=== PATIENT | female | born 1950 | race African-American/Black ===

== ENCOUNTER 2022-01-15 14:35 | Inpatient (IN) | payer MEDICARE, OTHER ==
[~2022-01-15] VITALS: Ht 160 cm; Wt 51.0 kg
[~2022-01-15 14:35] MED LIST: CEFAZOLIN 1 G VIAL ONE; DEXAMETHASONE SOD PHOSPHATE 4 MG INJ ONE; LIDOCAINE-MPF 2% 5 ML VIAL ONE; PROPOFOL 200 MG/20 ML BOTTLE ONE; SUCCINYLCHOLINE CHLORIDE 200 MG/10 ML VIAL ONE
[2022-01-15] MEDS ORDERED: VANCOMYCIN IV 1,000 MG in IV DEXTROSE 5% 250 ML IV ONE (15:00)
[2022-01-15] MEDS ORDERED: IV NORMAL SALINE 1000 ML BAG IV ONE (15:00)
[2022-01-15] MEDS ORDERED: MEROPENEM 1 G in IV NORMAL SALINE 100 ML IV ONE (15:00)
--- NOTE | 2022-01-15 15:00 | NUR ---
Dr Levine at bedside for MSE.
[2022-01-15] MEDS ORDERED: VANCOMYCIN IV 200 ML ONE (15:03)
--- NOTE | 2022-01-15 15:20 | NUR ---
Lab and another RN notified that patient is hardstick. This RN attempted IV x 2, unable to. Another RN is trying at this time and lab will draw blood, made aware.
[2022-01-15] MEDS ORDERED: MEROPENEM 1GM/NS 100ML IVPB **ER PYXIS ONLY IV ONE (15:44)
[2022-01-15 15:53] LABS: HEMATOCRIT 31.9 % (31.2-41.9); MEAN CORPUSCULAR HEMOGLOBIN 31.1 uug (24.7-32.8); MEAN CORPUSCULAR VOLUME 99.9 fL (75.5-95.3); PLATELET COUNT (AUTO) 531 K/uL (179-408)
[2022-01-15] MEDS ORDERED: HEPA500034 SQ (15:53)
[2022-01-15] MEDS ORDERED: OLAN7.5T3 GT (15:53)
[2022-01-15] MEDS ORDERED: ASPI81TA31 GT (15:53)
[2022-01-15] MEDS ORDERED: HYDR453.3 TP (15:53)
[2022-01-15] MEDS ORDERED: FOLI0.8T2 GT (15:53)
[2022-01-15] MEDS ORDERED: INSU3INS6 SQ (15:53)
[2022-01-15] MEDS ORDERED: INSU100V39 SQ (15:53)
[2022-01-15] MEDS ORDERED: LATA2.5D15 EACHEYE (15:53)
[2022-01-15] MEDS ORDERED: METO-295 GT (15:53)
[2022-01-15] MEDS ORDERED: DOCU100C36 GT (15:53)
[2022-01-15] MEDS ORDERED: EPOE4000 SQ (15:53)
[2022-01-15] MEDS ORDERED: OMEP40CA21 GT (15:53)
[2022-01-15] MEDS ORDERED: FENO48TA6 GT (15:53)
[2022-01-15] MEDS ORDERED: ACET-2154 GT ×2 (15:53→16:11)
[2022-01-15 16:09] LABS: CARBON DIOXIDE 32 mmol/L (21-32); CHLORIDE 91 mmol/L (98-107); CREATININE 5.4 mg/dL (0.6-1.3); GLUCOSE 224 mg/dL (74-106); POTASSIUM 3.2 mmol/L (3.5-5.1); UREA NITROGEN, BLOOD 36 mg/dL (7-18)
[2022-01-15] MEDS ORDERED: ACET-73 GT (16:11)
[2022-01-15] MEDS ORDERED: NYST5ORA PO (16:11)
[2022-01-15] MEDS ORDERED: ONDA4TAB5 GT (16:11)
[2022-01-15] MEDS ORDERED: MIDO5TAB5 GT (16:11)
[2022-01-15 16:17] LABS: ALANINE AMINOTRANSFERASE 15 U/L (14-59); ALKALINE PHOSPHATASE 128 U/L (50-136); ASPARTATE AMINOTRANSFERASE 20 U/L (15-37); BILIRUBIN,DIRECT 0.1 mg/dL (0.0-0.2); BILIRUBIN,TOTAL 0.5 mg/dL (0.2-1.0)
--- NOTE | 2022-01-15 16:53 | NUR ---
Per Nursing Joinery Machinist, Midline insertion will be done tonight. aware.
[2022-01-15] MEDS ORDERED: FENTANYL CITRATE 100 MCG/2 ML AMPUL IV ONE (17:00)
[2022-01-15] MEDS ORDERED: FENTANYL CITRATE 100 MCG/2 ML AMPUL ONE (17:08)
--- NOTE | 2022-01-15 17:43 | NUR ---
EPIC paged at this time.
--- NOTE | 2022-01-15 18:19 | NUR ---
Dr Posey accepted pt for admission, tele for abdominal pain: Gt malfunction/sepsis
--- NOTE | 2022-01-15 18:27 | NUR ---
Notified 3rd floor about patient. Bed 318 was provided. Pending insurance authorization for admission.
[2022-01-15] MEDS ORDERED: MIDODRINE HCL 5 MG TABLET GT PRN (19:45)
[2022-01-15] MEDS ORDERED: REMEDY ESSENTIAL ZINC PASTE 113 GM TP PRN (19:45)
[2022-01-15] MEDS ORDERED: MAGNESIUM HYDROXIDE 30 ML LIQUID UDC GT PRN (19:45)
[2022-01-15] MEDS ORDERED: ONDANSETRON 4 MG/2 ML VIAL IV PRN (19:45)
--- NOTE | 2022-01-15 20:10 | NUR ---
Report given to Rachael ROBLEDO
[2022-01-15 21:00] VITALS: BP 104/52
[2022-01-15] MEDS: PIPERACILLIN/TAZO 2.25 G in IV DEXTROSE 5% 50 ML IV SCH ×2 (21:00→21:29)
[2022-01-15] MEDS: OLANZAPINE 2.5 MG TABLET GT SCH ×3 (21:00→23:57)
--- NOTE | 2022-01-15 21:02 | NUR ---
Pt. admitted to room 318 , under care of Dr. Posey Belongs List completed Rachael RN aware of patient's arrival
[2022-01-15] MEDS: NYSTATIN SUSPENSION 5 ML LIQUID UDC PO SCH (21:29)
[2022-01-15] MEDS: LATANOPROST OPHT DROP 2.5 ML BOTTLE EACHEYE SCH (21:31)
[2022-01-15 22:00] VITALS: BP 104/52
[2022-01-15] MEDS ORDERED: PIPERACILLIN SODIUM/TAZOBACTAM 4.5 G in IV DEXTROSE 5% 50 ML IV SCH (22:00)
[2022-01-16] VITALS: BP 110/68
[2022-01-16] MEDS: OLANZAPINE 2.5 MG TABLET GT SCH ×2 (00:02→00:03)
[2022-01-16] MEDS: IV NS 1000 ML 1,000 ML IV PRN (00:33)
[2022-01-16 04:00] VITALS: BP 108/57
[2022-01-16] MEDS: NYSTATIN SUSPENSION 5 ML LIQUID UDC PO SCH ×2 (09:00→12:33)
[2022-01-16] MEDS: ASPIRIN 81 MG TAB.CHEW GT SCH (09:00)
[2022-01-16 09:03] LABS: HEMATOCRIT 25.1 % (31.2-41.9); MEAN CORPUSCULAR HEMOGLOBIN 32.6 uug (24.7-32.8); MEAN CORPUSCULAR VOLUME 98.9 fL (75.5-95.3); PLATELET COUNT (AUTO) 391 K/uL (179-408)
[2022-01-16 09:18] LABS: BILIRUBIN,TOTAL 0.5 mg/dL (0.2-1.0); CREATININE 6.7 mg/dL (0.6-1.3); MAGNESIUM 2.8 mg/dL (1.8-2.4); PHOSPHOROUS 6.4 mg/dL (2.5-4.9); TOTAL PROTEIN, SERUM 7.8 g/dL (6.4-8.2)
[2022-01-16] MEDS: PANTOPRAZOLE SODIUM 40 MG VIAL IV SCH (09:42)
--- NOTE | 2022-01-16 11:00 | NUR ---
WOUND CARE CONSULT: PT PRESENTS WITH SACRAL SCARRING AND MOISTURE ASSOCIATED SKIN DAMAGE OVER SCARRING WELL NECROTIC WOUND AROUND G TUBE SITE, PRESENT ON ADMISSION. G TUBE IS CLAMPED. DR MYRICK CALLED FOR SURGICAL CONSULT REQUEST. DISCUSSED SKIN [id number] WITH NURSING STAFF. MD IN AGREEMENT WITH PLAN OF CARE.
[2022-01-16 11:01] VITALS: BP 107/50
[2022-01-16] MEDS ORDERED: ACETAMINOPHEN 650 MG/20.3 ML LIQUID UDC GT PRN (12:30)
[2022-01-16] MEDS: ACETAMINOPHEN 650 MG/20.3 ML LIQUID UDC GT PRN (12:59)
[2022-01-16] MEDS: PIPERACILLIN/TAZO 2.25 G in IV DEXTROSE 5% 50 ML IV SCH ×2 (13:00→21:02)
[2022-01-16] MEDS: MIDODRINE HCL 5 MG TABLET PO SCH ×2 (16:13→21:04)
--- NOTE | 2022-01-16 17:34 | NUR ---
dialysis was stopped because of drop in blood pressure, patient is was given midodrine prior to dialysis. blood pressure fluctuated during dialysis systolic 147 -88. patient is awake and alert at this time. no distress noted.
[2022-01-16 18:10] VITALS: BP 101/56
--- NOTE | 2022-01-16 19:52 | NUR ---
SHIFT REPORT GIVEN TO NIGHT NURSE
[2022-01-16 20:00] VITALS: BP 112/50
[2022-01-16] MEDS: THERAHONEY GEL 1.5 OZ TUBE TOP SCH (21:02)
[2022-01-16] MEDS ORDERED: DOSING PER PHARMACY-AMIKACIN IV XX PRN (21:15)
--- NOTE | 2022-01-16 21:55 | NUR ---
Patient has 3 large BM in am, and then 1 large BM in this shift, report to Elizabeth ACUTE CARE NURSE about the diarrhea, with order for c diff, and change abx. Patient has order for zyprexa 7.5mg via gt once only, order noted and carried out.
[2022-01-16] MEDS ORDERED: OLANZAPINE 2.5 MG TABLET PO ONE (22:00)
[2022-01-16] MEDS ORDERED: VANCOMYCIN IV 1,000 MG in IV DEXTROSE 5% 250 ML IV ONE (22:00)
[2022-01-16] MEDS: LATANOPROST OPHT DROP 2.5 ML BOTTLE EACHEYE SCH (22:11)
[2022-01-16] MEDS ORDERED: METRONIDAZOLE 500 MG/NS 100ML 100 ML IV ONE (22:23)
[2022-01-16] MEDS ORDERED: VANCOMYCIN IV 200 ML ONE (22:23)
[2022-01-16] MEDS ORDERED: AMIKACIN SULFATE 500 MG/2 ML VIAL ONE (22:24)
[2022-01-16] MEDS: METRONIDAZOLE 500 MG/NS 100ML 500 MG in PREMIXED 1 EACH IV SCH (22:54)
--- NOTE | 2022-01-16 22:54 | NUR ---
Medication Flagyl IV meds unscannable, also medication Amikacin IV meds unscannable, enter manually.
[2022-01-16] MEDS ORDERED: DEXTROSE 5% IV ONE (23:00)
[2022-01-16] MEDS ORDERED: AMIKACIN IV ONE (23:00)
[2022-01-17] VITALS: BP 109/52
[2022-01-17] MEDS: CLOTRIMAZOLE 1% CREAM 30 GM TUBE TOP SCH ×4 (00:54→15:53)
[2022-01-17 04:00] VITALS: BP 130/65
[2022-01-17] MEDS: MIDODRINE HCL 5 MG TABLET PO SCH ×3 (05:18→21:03)
[2022-01-17] MEDS ORDERED: METRONIDAZOLE 500 MG/NS 100ML 100 ML IV ONE (05:39)
[2022-01-17] MEDS: METRONIDAZOLE 500 MG/NS 100ML 500 MG in PREMIXED 1 EACH IV SCH ×3 (05:48→21:02)
[2022-01-17] MEDS ORDERED: VANCOMYCIN IV 500 MG in IV DEXTROSE 5% 100 ML IV PRN (06:15)
--- NOTE | 2022-01-17 07:54 | NUR ---
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
--- NOTE | 2022-01-17 08:00 | NUR ---
RECEIVED PATIENT IN BED WITH EYES CLOSED ON 2L NC SATURATING 100% NO SS OF PAIN OR DISTRESS SR ON MONITOR
--- NOTE | 2022-01-17 08:15 | NUR ---
NOTED QT PROLONGATION FROM HEART MONITOR, DR CAMILO AROUND WITH ORDER . EKG DONE AND STOP ZYPREXA
[2022-01-17] MEDS: ACETAMINOPHEN 650 MG/20.3 ML LIQUID UDC GT PRN (08:46)
[2022-01-17] MEDS: PANTOPRAZOLE SODIUM 40 MG VIAL IV SCH (08:46)
[2022-01-17] MEDS: ASPIRIN 81 MG TAB.CHEW GT SCH (08:46)
[2022-01-17] MEDS: THERAHONEY GEL 1.5 OZ TUBE TOP SCH (08:47)
[2022-01-17 11:53] VITALS: BP 107/40
--- NOTE | 2022-01-17 12:00 | NUR ---
NO ACUTE CHANGE FROM MORNING ASSESSMENT
[2022-01-17] MEDS: IV NS 1000 ML 1,000 ML IV PRN (13:04)
--- NOTE | 2022-01-17 15:14 | NUR ---
DR SMITH NOTIFIED FOR HD SCHEDULE NO NEW ORDERS BUT ADVISED TO SKIP HD TODAY
[2022-01-17 16:00] VITALS: BP 100/40
[2022-01-17 20:05] VITALS: BP 122/52
[2022-01-17] MEDS: LATANOPROST OPHT DROP 2.5 ML BOTTLE EACHEYE SCH (20:10)
[2022-01-18] VITALS: BP 134/62
[2022-01-18 04:00] VITALS: BP 135/60
[2022-01-18] MEDS: METRONIDAZOLE 500 MG/NS 100ML 500 MG in PREMIXED 1 EACH IV SCH ×3 (05:14→22:02)
[2022-01-18] MEDS: MIDODRINE HCL 5 MG TABLET PO SCH ×3 (06:00→22:00)
--- NOTE | 2022-01-18 08:00 | NUR ---
RECEIVED PATIENT IN BED AWAKE ALERT AND COHERENT, DENIES PAIN OR SOB SR ON MONITOR.
[2022-01-18] MEDS: ASPIRIN 81 MG TAB.CHEW GT SCH (08:35)
[2022-01-18] MEDS: PANTOPRAZOLE SODIUM 40 MG VIAL IV SCH (08:35)
[2022-01-18] MEDS: THERAHONEY GEL 1.5 OZ TUBE TOP SCH (08:35)
[2022-01-18] MEDS: CLOTRIMAZOLE 1% CREAM 30 GM TUBE TOP SCH ×3 (08:35→15:47)
--- NOTE | 2022-01-18 09:00 | NUR ---
RECEIVED A CALL FROM [facility], PATIENT POSITIVE C-DIFF FROM STOOL DR CAMILO AND MADE AWARE
--- NOTE | 2022-01-18 10:51 | NUR ---
STATUS CHANGED TO MED/SURG BY DR CAMILO. TEXTED BACK DR YOUNG REGARDING GI CONSULT, AWAITING CALL BACK
[2022-01-18] MEDS: IV NS 1000 ML 1,000 ML IV PRN (11:45)
[2022-01-18 12:00] VITALS: BP 148/63
[2022-01-18 15:49] VITALS: BP 128/62
--- NOTE | 2022-01-18 17:17 | NUR ---
SEEN AND EXAMINED BY GI DR YOUNG WITH ORDER TO START REGLAN AND FEEDING PER FIELD AIDE. PER DR YOUNG PATIENT NEEDS SURGICAL INTERVENTION FOR FURTHER TX OF GASTROCUTANEOUS FISTULA AND HE WILL CALL DR CAMILO
[2022-01-18] MEDS ORDERED: METOCLOPRAMIDE HCL 10 MG/2 ML VIAL IV SCH ×2 (18:00)
--- NOTE | 2022-01-18 19:30 | NUR ---
Received pt awake, alert and orientedx4. Pt in no acute distress. Iv intact. Safety and comfort provided. Will continue to monitor.
[2022-01-18 20:21] VITALS: BP 108/44
[2022-01-18] MEDS: LATANOPROST OPHT DROP 2.5 ML BOTTLE EACHEYE SCH (20:40)
[2022-01-18] MEDS: METOCLOPRAMIDE HCL 10 MG/2 ML VIAL IV SCH (23:12)
[2022-01-19 04:05] VITALS: BP 132/57
[2022-01-19] MEDS: MIDODRINE HCL 5 MG TABLET PO SCH ×3 (06:00→21:10)
--- NOTE | 2022-01-19 06:12 | NUR ---
Pt slept intermittently. Pt in no acute distress. Pt iv intact. Prescribed medication given and pt tolerated it well. Pt turned and repositioned. Safety and comfort provided.Vital signs within normal limit. All needs are met. Will endorse to incoming nurse for continuity of care.
[2022-01-19] MEDS: METRONIDAZOLE 500 MG/NS 100ML 500 MG in PREMIXED 1 EACH IV SCH ×3 (06:31→21:09)
[2022-01-19] MEDS: METOCLOPRAMIDE HCL 10 MG/2 ML VIAL IV SCH ×4 (06:32→23:14)
[2022-01-19] MEDS: ASPIRIN 81 MG TAB.CHEW GT SCH (08:33)
[2022-01-19] MEDS: CLOTRIMAZOLE 1% CREAM 30 GM TUBE TOP SCH ×3 (08:34→17:11)
[2022-01-19] MEDS: THERAHONEY GEL 1.5 OZ TUBE TOP SCH (08:34)
[2022-01-19] MEDS: PANTOPRAZOLE SODIUM 40 MG VIAL IV SCH (08:43)
[2022-01-19] MEDS: IV NS 1000 ML 1,000 ML IV PRN (11:25)
[2022-01-19 12:41] VITALS: BP 121/57
[2022-01-19 16:39] VITALS: BP 118/59
[2022-01-19] MEDS ORDERED: VANCOMYCIN IV 500 MG in IV DEXTROSE 5% 100 ML IV ONE (17:00)
--- NOTE | 2022-01-19 18:20 | NUR ---
hd done 1500 ml removed pt tolerated the procedure well
[2022-01-19] MEDS ORDERED: AMIKACIN IV ONE (20:00)
[2022-01-19] MEDS ORDERED: DEXTROSE 5% IV ONE (20:00)
[2022-01-19] MEDS: LATANOPROST OPHT DROP 2.5 ML BOTTLE EACHEYE SCH (20:24)
[2022-01-19 20:28] VITALS: BP 140/71
[2022-01-20 03:06] LABS: HEPATITIS B SURFACE AG Negative (Negative)
[2022-01-20 04:15] VITALS: BP 146/75
[2022-01-20] MEDS: METRONIDAZOLE 500 MG/NS 100ML 500 MG in PREMIXED 1 EACH IV SCH ×3 (05:12→21:09)
[2022-01-20] MEDS: METOCLOPRAMIDE HCL 10 MG/2 ML VIAL IV SCH ×4 (05:13→23:02)
[2022-01-20] MEDS: MIDODRINE HCL 5 MG TABLET PO SCH ×3 (06:00→21:10)
--- NOTE | 2022-01-20 08:04 | NUR ---
Sleeping, appears comfortable. NPO maintained. IVF infusing well
[2022-01-20] MEDS ORDERED: TPN/PPN PER PHARMACY IV PRN (08:45)
[2022-01-20] MEDS: ASPIRIN 81 MG TAB.CHEW GT SCH (09:00)
[2022-01-20] MEDS: PANTOPRAZOLE SODIUM 40 MG VIAL IV SCH (09:50)
[2022-01-20] MEDS: CLOTRIMAZOLE 1% CREAM 30 GM TUBE TOP SCH ×3 (09:51→19:01)
[2022-01-20] MEDS: THERAHONEY GEL 1.5 OZ TUBE TOP SCH (09:52)
[2022-01-20 11:06] LABS: HEPATITIS B SURFACE AG Negative (Negative)
[2022-01-20 12:00] VITALS: BP 128/58
--- NOTE | 2022-01-20 12:49 | NUR ---
WOUND CARE CONSULT: PT SEEN FOR RE-EVALUATION OF SACRAL INCONTINENCE ASSOCIATED SKIN DAMAGE OVER SCARRING, PRESENT ON ADMISSION. RECOMMENDATIONS MADE FOR SKIN PROTECTION. DISCUSSED WITH NURSING STAFF. PT FOLLOWED BY PLASTIC SURGERY TEAM FOR G TUBE SITE. PT NOTED TO BE SCRATCHING HER SKIN. RN TO DISCUSS WITH PMD. IN AGREEMENT WITH PLAN OF CARE. Addendum: 01/20/22 at 1250 by DENISSE GALLARDO RN Amended: Links added.
--- NOTE | 2022-01-20 13:00 | NUR ---
With BM to mucoid greenish stool. Incontinence care done. Contact precaution for c diff re enforced. Bed bath given. Wound care done.
[2022-01-20] MEDS: IV NS 1000 ML 1,000 ML IV PRN (13:58)
[2022-01-20 16:00] VITALS: BP 113/52
[2022-01-20 17:35] LABS: CREATININE 5.3 mg/dL (0.6-1.3); POTASSIUM 3.2 mmol/L (3.5-5.1)
--- NOTE | 2022-01-20 19:00 | NUR ---
PICC line attempted but unsuccessful. Midline in place to RUE. Pharmacy informed. NPO maintained. IVF infusing well
[2022-01-20 20:00] VITALS: BP 132/65
[2022-01-20] MEDS: LATANOPROST OPHT DROP 2.5 ML BOTTLE EACHEYE SCH (20:13)
[2022-01-21 04:00] VITALS: BP 141/68
[2022-01-21] MEDS: METRONIDAZOLE 500 MG/NS 100ML 500 MG in PREMIXED 1 EACH IV SCH ×3 (05:05→21:57)
[2022-01-21] MEDS: METOCLOPRAMIDE HCL 10 MG/2 ML VIAL IV SCH ×3 (05:09→18:11)
[2022-01-21] MEDS: MIDODRINE HCL 5 MG TABLET PO SCH (05:24)
[2022-01-21 07:21] LABS: HEMATOCRIT 25.9 % (31.2-41.9); MEAN CORPUSCULAR HEMOGLOBIN 32.2 uug (24.7-32.8); MEAN CORPUSCULAR VOLUME 101.7 fL (75.5-95.3); PLATELET COUNT (AUTO) 294 K/uL (179-408)
[2022-01-21 07:32] LABS: PHOSPHOROUS 5.8 mg/dL (2.5-4.9); POTASSIUM 3.2 mmol/L (3.5-5.1)
[2022-01-21] MEDS: ASPIRIN 81 MG TAB.CHEW GT SCH (09:00)
[2022-01-21] MEDS ORDERED: POTASSIUM CHLORIDE 20 MEQ TAB.PRT.SR PO ONE (09:15)
[2022-01-21] MEDS: FOLIC ACID/VITAMIN B COMP W-C TABLET PO SCH (09:15)
[2022-01-21] MEDS: PANTOPRAZOLE SODIUM 40 MG VIAL IV SCH (09:16)
[2022-01-21] MEDS: CLOTRIMAZOLE 1% CREAM 30 GM TUBE TOP SCH ×3 (09:30→17:53)
[2022-01-21] MEDS: THERAHONEY GEL 1.5 OZ TUBE TOP SCH (09:30)
[2022-01-21] MEDS ORDERED: DEXTROSE 50% 50 ML DISP.SYRIN IV PRN (10:30)
[2022-01-21 11:54] VITALS: BP 92/59
[2022-01-21] MEDS: BLOOD SUGAR DIAGNOSTIC 1 EACH STRIP VI SCH ×2 (12:00→18:06)
[2022-01-21] MEDS: POTASSIUM CHLORIDE 50 ML IV SCH ×2 (12:19→13:25)
[2022-01-21] MEDS ORDERED: TPN BAG #1 IV SCH ×3 (13:00)
[2022-01-21] MEDS ORDERED: IV FAT EMULSIONS 20% 250 ML IV SCH (13:00)
[2022-01-21] MEDS ORDERED: VANCOMYCIN IV 500 MG in IV DEXTROSE 5% 100 ML IV ONE (14:00)
[2022-01-21 15:58] VITALS: BP 135/62
--- NOTE | 2022-01-21 18:00 | NUR ---
PATIENT STARTED ON TPN ORDERED BY ., PATIENT NPO FOR SURGERY TOMORROW AT 0900 WITH DOCTOR LES. CONSENT WAS SIGN.
[2022-01-21 20:00] VITALS: BP 144/70
[2022-01-21] MEDS: LATANOPROST OPHT DROP 2.5 ML BOTTLE EACHEYE SCH (21:56)
[2022-01-22] MEDS: METOCLOPRAMIDE HCL 10 MG/2 ML VIAL IV SCH ×5 (00:52→23:41)
[2022-01-22] MEDS: BLOOD SUGAR DIAGNOSTIC 1 EACH STRIP VI SCH ×5 (00:53→23:51)
[2022-01-22 04:37] VITALS: BP 103/50
--- NOTE | 2022-01-22 04:49 | NUR ---
Recieved pt alert and oriented pt is scheduled for surgery in the am medication given as ordered no signs of distress noted pt blood sugar is 136 no signs of diabetic reaction noted. pt is monitored hourly no signs adverse creaction from medication will continue to monitor.
[2022-01-22] MEDS: METRONIDAZOLE 500 MG/NS 100ML 500 MG in PREMIXED 1 EACH IV SCH ×3 (06:29→23:12)
[2022-01-22 07:15] LABS: CREATININE 4.2 mg/dL (0.6-1.3); MAGNESIUM 1.8 mg/dL (1.8-2.4); PHOSPHOROUS 3.5 mg/dL (2.5-4.9)
--- NOTE | 2022-01-22 08:57 | NUR ---
Pt has been taken down to OR. Consent signed my and two nurses, Dr. Abraham will sign second MD section.
[2022-01-22] MEDS: FOLIC ACID/VITAMIN B COMP W-C TABLET PO SCH (09:00)
[2022-01-22] MEDS ORDERED: SCOPOLAMINE PATCH 1 MG/72 HRS PATCH TD ONE (09:00)
[2022-01-22] MEDS: PANTOPRAZOLE SODIUM 40 MG VIAL IV SCH (09:00)
[2022-01-22] MEDS: ASPIRIN 81 MG TAB.CHEW GT SCH (09:00)
[2022-01-22] MEDS ORDERED: FENTANYL CITRATE 100 MCG/2 ML AMPUL ONE ×2 (09:16→11:06)
[2022-01-22] MEDS ORDERED: MIDAZOLAM HCL 2 MG/2 ML VIAL ONE (09:23)
[2022-01-22] MEDS ORDERED: LIDOCAINE 1%-EPI 1:100,000 20 ML VIAL ONE (10:21)
[2022-01-22] MEDS ORDERED: BUPIVACAINE 0.25% 30 ML VIAL ONE (10:21)
[2022-01-22] MEDS ORDERED: BACITRACIN/POLYMYXIN B OINT 15 GM TUBE ONE (10:22)
[2022-01-22 12:00] VITALS: BP 118/70
[2022-01-22] MEDS: CLOTRIMAZOLE 1% CREAM 30 GM TUBE TOP SCH ×3 (14:34→17:00)
[2022-01-22] MEDS: THERAHONEY GEL 1.5 OZ TUBE TOP SCH (14:35)
[2022-01-22 16:00] VITALS: BP 130/72
[2022-01-22] MEDS ORDERED: TPN BAG #2 IV SCH ×3 (18:00)
[2022-01-22] MEDS: GENTAMICIN SULFATE 0.1% CREAM 15 GM TUBE TOP SCH (18:00)
[2022-01-22] MEDS: INSULIN REGULAR, HUMAN 300 UNIT/3 ML VIAL SQ PRN ×2 (18:47→23:59)
--- NOTE | 2022-01-22 18:53 | NUR ---
Pt started on TPN bag #2 at 1830. Infusion to start at 50cc/hr for the next 6hrs, then, increase to 60ml/hr for the next 6 hrs, and again increase by 10 to 70cc/hr for the following 6 hrs. Lipids to only be given Mon/Wed/Fri per order. Pt is status post Repair of epigastric hernia, closure of gastrocutaneous fistula, new peg placement, and abdominal wall hernia repair. Surgical dressing to not be changed for 48hrs post surgery. Tube feeding will be started on 01/25/2022
[2022-01-22 20:42] VITALS: BP 122/65
[2022-01-22] MEDS: LATANOPROST OPHT DROP 2.5 ML BOTTLE EACHEYE SCH (20:47)
[2022-01-23 04:00] VITALS: BP 147/57
[2022-01-23] MEDS: METRONIDAZOLE 500 MG/NS 100ML 500 MG in PREMIXED 1 EACH IV SCH ×2 (05:26→15:41)
[2022-01-23] MEDS: METOCLOPRAMIDE HCL 10 MG/2 ML VIAL IV SCH ×3 (05:38→18:18)
[2022-01-23] MEDS: BLOOD SUGAR DIAGNOSTIC 1 EACH STRIP VI SCH ×3 (05:46→18:16)
[2022-01-23] MEDS: INSULIN REGULAR, HUMAN 300 UNIT/3 ML VIAL SQ PRN ×2 (05:50→18:19)
[2022-01-23] MEDS ORDERED: IV FAT EMULSIONS 20% 250 ML IV SCH (06:00)
[2022-01-23 07:27] LABS: HEMATOCRIT 23.6 % (31.2-41.9); MEAN CORPUSCULAR HEMOGLOBIN 32.7 uug (24.7-32.8); MEAN CORPUSCULAR VOLUME 99.4 fL (75.5-95.3); PLATELET COUNT (AUTO) 233 K/uL (179-408)
[2022-01-23 07:46] LABS: ALANINE AMINOTRANSFERASE < 6 U/L (14-59); ALKALINE PHOSPHATASE 80 U/L (50-136); ASPARTATE AMINOTRANSFERASE 14 U/L (15-37); BILIRUBIN,TOTAL 0.4 mg/dL (0.2-1.0); CARBON DIOXIDE 22 mmol/L (21-32); CHLORIDE 100 mmol/L (98-107); CREATININE 5.4 mg/dL (0.6-1.3); GLUCOSE 299 mg/dL (74-106); MAGNESIUM 1.7 mg/dL (1.8-2.4); POTASSIUM 4.2 mmol/L (3.5-5.1); TOTAL PROTEIN, SERUM 6.8 g/dL (6.4-8.2); TRIGLYCERIDES 269 MG/DL (30-150); UREA NITROGEN, BLOOD 49 mg/dL (7-18)
[2022-01-23] MEDS: ASPIRIN 81 MG TAB.CHEW GT SCH (08:53)
[2022-01-23] MEDS: FOLIC ACID/VITAMIN B COMP W-C TABLET PO SCH (08:53)
[2022-01-23] MEDS: PANTOPRAZOLE SODIUM 40 MG VIAL IV SCH (08:53)
[2022-01-23] MEDS: CLOTRIMAZOLE 1% CREAM 30 GM TUBE TOP SCH ×4 (09:00→17:00)
[2022-01-23] MEDS: THERAHONEY GEL 1.5 OZ TUBE TOP SCH ×2 (09:00→09:51)
[2022-01-23] MEDS: GENTAMICIN SULFATE 0.1% CREAM 15 GM TUBE TOP SCH ×3 (09:00→17:00)
[2022-01-23] MEDS: ACETAMINOPHEN 650 MG/20.3 ML LIQUID UDC GT PRN ×2 (09:50→15:54)
[2022-01-23 10:49] LABS: IRON, SERUM 62 ug/dL (50-175)
--- NOTE | 2022-01-23 11:33 | NUR ---
Therahoney, Lotrimin and Gentamycin wasnt administered because Pt is status post Repair of epigastric hernia, closure of gastrocutaneous fistula, new peg placement, and abdominal wall hernia repair and surgical dressing to not be changed for 48hrs post surgery (until tomorrow 01/24).
[2022-01-23] MEDS ORDERED: EPOETIN ALFA-EPBX 10,000 UNIT/ML VIAL SQ ONE (12:00)
[2022-01-23] MEDS ORDERED: DEXT50DI8 IV (13:28)
[2022-01-23] MEDS ORDERED: INSU100V28 SQ (13:28)
[2022-01-23] MEDS ORDERED: Blood Sugar Diagnostic VI (13:28)
[2022-01-23] MEDS ORDERED: METR500T GT (13:28)
[2022-01-23] MEDS ORDERED: FOLI0.8T2 PO (13:28)
[2022-01-23] MEDS ORDERED: TPN BAG #3 IV SCH ×5 (18:00)
--- NOTE | 2022-01-23 20:05 | NUR ---
Patient picked up by ambulance, in fair condition, report given to ambulance, Erna ROBLEDO gave report to Zenia ROBLEDO [facility], told ambulance staff that Dialysis will come to SNF to do dialysis tonight, and not to change GT dressing for another for 48 hrs s/p gt replacement on 01/22. given all paper works.
== END 2022-01-23 20:02 | DRG 326 ==
LOC: ER 14:35 → TELE3 20:31 → MEDSURG3 01-18 09:26
PROVIDERS: ADMIT Internal Medicine; ATTEND Internal Medicine
PROC: 05H533Z Insertion of Infusion Device into Right Subclavian Vein, Percutaneous Approach (ICD-10-PCS; 2022-01-16)
PROC: B546ZZA Ultrasonography of Right Subclavian Vein, Guidance (ICD-10-PCS; 2022-01-16)
PROC: 5A1D70Z Performance of Urinary Filtration, Intermittent, Less than 6 Hours Per Day (ICD-10-PCS; 2022-01-16)
PROC: 02HV33Z Insertion of Infusion Device into Superior Vena Cava, Percutaneous Approach (ICD-10-PCS; 2022-01-20)
PROC: B548ZZA Ultrasonography of Superior Vena Cava, Guidance (ICD-10-PCS; 2022-01-20)
PROC: 0WQF0ZZ Repair Abdominal Wall, Open Approach (ICD-10-PCS; principal; 2022-01-22)
PROC: 0DP63UZ Removal of Feeding Device from Stomach, Percutaneous Approach (ICD-10-PCS; 2022-01-22)
PROC: 0DH60UZ Insertion of Feeding Device into Stomach, Open Approach (ICD-10-PCS; 2022-01-22)
DX: K94.22 Gastrostomy infection (principal); A41.9 Sepsis, unspecified organism; L89.154 Pressure ulcer of sacral region, stage 4; N18.6 End stage renal disease; G92.8 Other toxic encephalopathy; E43 Unspecified severe protein-calorie malnutrition; L03.311 Cellulitis of abdominal wall; K31.6 Fistula of stomach and duodenum; F20.89 Other schizophrenia; J96.10 Chronic respiratory failure, unspecified whether with hypoxia or hypercapnia; R64 Cachexia; Z68.1 Body mass index [BMI] 19.9 or less, adult; A04.72 Enterocolitis due to Clostridium difficile, not specified as recurrent; D68.59 Other primary thrombophilia; K92.2 Gastrointestinal hemorrhage, unspecified; E11.22 Type 2 diabetes mellitus with diabetic chronic kidney disease; Z99.2 Dependence on renal dialysis; K43.9 Ventral hernia without obstruction or gangrene; D63.8 Anemia in other chronic diseases classified elsewhere; K21.9 Gastro-esophageal reflux disease without esophagitis; E78.5 Hyperlipidemia, unspecified; R62.7 Adult failure to thrive; K94.23 Gastrostomy malfunction; R13.10 Dysphagia, unspecified; Z79.4 Long term (current) use of insulin; Z20.822 Contact with and (suspected) exposure to COVID-19; L30.8 Other specified dermatitis; Y83.8 Other surgical procedures as the cause of abnormal reaction of the patient, or of later complication, without mention of misadventure at the time of the procedure; Y73.8 Miscellaneous gastroenterology and urology devices associated with adverse incidents, not elsewhere classified; Y92.129 Unspecified place in nursing home as the place of occurrence of the external cause; D50.9 Iron deficiency anemia, unspecified; G40.909 Epilepsy, unspecified, not intractable, without status epilepticus; E87.6 Hypokalemia; D53.9 Nutritional anemia, unspecified; R73.9 Hyperglycemia, unspecified; E83.42 Hypomagnesemia; F20.9 Schizophrenia, unspecified; Z86.73 Personal history of transient ischemic attack (TIA), and cerebral infarction without residual deficits
CPT/HCPCS: 36415; 71045; 74018; 83550; 83605; 83735; 84100; 84478; 84484; 85025; 85610; 85730; 86706; 87040; 87070; 87077; 87340; 90937; 93005; A4649; A4663; A6209; A6213; C9113; G0378; J0278; J0330; J0690; J0885; J1100; J1815; J2185; J2250; J2543; J2765; J3010; J3370; J3475; J3480; J3490; J3590; J7040; J7050; J7131

== ENCOUNTER 2022-02-05 19:43 | Inpatient (IN) | payer MEDICARE, OTHER ==
[~2022-02-05] VITALS: Ht 160 cm; Wt 49.9 kg
[~2022-02-05 19:43] MED LIST changes: +ASPI81TA31 GT; +Blood Sugar Diagnostic VI; -CEFAZOLIN 1 G VIAL ONE; -DEXAMETHASONE SOD PHOSPHATE 4 MG INJ ONE; +DEXT50DI8 IV; +DOCU100C36 GT; +EPOE4000 SQ; +FENO48TA6 GT; +FOLI0.8T2 GT; +FOLI0.8T2 PO; +INSU100V28 SQ; +INSU3INS6 SQ; +LATA2.5D15 EACHEYE; -LIDOCAINE-MPF 2% 5 ML VIAL ONE; +METR500T GT; +MIDO5TAB5 GT; +OLAN7.5T3 GT; +OMEP40CA21 GT; +ONDA4TAB5 GT; -PROPOFOL 200 MG/20 ML BOTTLE ONE; -SUCCINYLCHOLINE CHLORIDE 200 MG/10 ML VIAL ONE
--- NOTE | 2022-02-05 20:03 | NUR ---
Patient BIB [id number] (Seq. # [id number]) from [facility]. A/Ox2. Bed ridden.
--- NOTE | 2022-02-05 20:30 | NUR ---
PICC Line Nurse contacted. ETA 45 - 60 min.
--- NOTE | 2022-02-05 20:56 | NUR ---
Call for TELE bed.
[2022-02-05 21:01] LABS: HEMATOCRIT 22.1 % (31.2-41.9); MEAN CORPUSCULAR HEMOGLOBIN 32.8 uug (24.7-32.8); MEAN CORPUSCULAR VOLUME 97.6 fL (75.5-95.3); PLATELET COUNT (AUTO) 261 K/uL (179-408)
[2022-02-05 21:19] LABS: ALANINE AMINOTRANSFERASE < 6 U/L (14-59); ALKALINE PHOSPHATASE 210 U/L (50-136); ASPARTATE AMINOTRANSFERASE 15 U/L (15-37); BILIRUBIN,DIRECT < 0.1 mg/dL (0.0-0.2); BILIRUBIN,TOTAL 0.2 mg/dL (0.2-1.0); CARBON DIOXIDE 30 mmol/L (21-32); CHLORIDE 99 mmol/L (98-107); CREATININE 3.9 mg/dL (0.6-1.3); GLUCOSE 193 mg/dL (74-106); POTASSIUM 3.5 mmol/L (3.5-5.1); TOTAL PROTEIN, SERUM 8.1 g/dL (6.4-8.2); UREA NITROGEN, BLOOD 64 mg/dL (7-18)
[2022-02-05] MEDS ORDERED: ONDANSETRON 4 MG/2 ML VIAL IV PRN (21:45)
[2022-02-05] MEDS ORDERED: ONDANSETRON HCL 4 MG TABLET GT PRN (21:45)
[2022-02-05] MEDS ORDERED: MIDODRINE HCL 5 MG TABLET GT PRN (21:45)
[2022-02-05 22:16] LABS: *OCCULT BLOOD STOOL POSITIVE (NEGATIVE)
--- NOTE | 2022-02-06 01:00 | NUR ---
Report given to Elvie ROBLEDO.
--- NOTE | 2022-02-06 02:25 | NUR ---
Pt. admitted to TELE room 307 , under care of Dr. Pittman Belongs List completed Elvie RN patients arrival.
[2022-02-06 02:39] VITALS: BP 90/54
[2022-02-06 04:10] VITALS: BP 110/39
[2022-02-06 05:12] VITALS: BP 90/54
[2022-02-06] MEDS ORDERED: MIDODRINE HCL 5 MG TABLET GT PRN (06:00)
[2022-02-06 06:58] LABS: HEMATOCRIT 22.1 % (31.2-41.9); MEAN CORPUSCULAR HEMOGLOBIN 33.2 uug (24.7-32.8); MEAN CORPUSCULAR VOLUME 98.1 fL (75.5-95.3); PLATELET COUNT (AUTO) 243 K/uL (179-408)
[2022-02-06 07:18] LABS: THYROID STIMULATING HORMONE 0.934 mIU/mL (0.358-3.740)
[2022-02-06 07:46] LABS: BILIRUBIN,TOTAL 0.2 mg/dL (0.2-1.0); CREATININE 4.3 mg/dL (0.6-1.3); POTASSIUM 3.4 mmol/L (3.5-5.1); TOTAL PROTEIN, SERUM 7.9 g/dL (6.4-8.2)
[2022-02-06] MEDS ORDERED: FENOFIBRATE NANOCRYSTALLIZED 48 MG TABLET GT SCH ×2 (09:00)
[2022-02-06] MEDS ORDERED: DOCUSATE SODIUM 100 MG CAPSULE PO SCH (09:00)
[2022-02-06] MEDS: DOCUSATE SODIUM 100 MG/10 ML LIQUID UDC GT SCH ×2 (09:25→21:18)
[2022-02-06] MEDS: FOLIC ACID/VITAMIN B COMP W-C TABLET GT SCH (09:25)
[2022-02-06] MEDS: PANTOPRAZOLE ORAL SUSPENSION 40 MG SUSPDR.PKT GT SCH (09:25)
[2022-02-06] MEDS: NEPRO 1000 ML GT PRN (09:29)
[2022-02-06] MEDS ORDERED: NEUTRA PHOS PACKET PO ONE (09:30)
[2022-02-06 10:59] VITALS: BP 135/53
--- NOTE | 2022-02-06 12:56 | NUR ---
WOUND CARE CONSULT: PT PRESENTS WITH SACRAL SCARRING AND ABDOMINAL WOUND, PRESENT ON ADMISSION. DR MYRICK CALLED FOR SURGICAL CONSULT. RECOMMENDATIONS MADE FOR WOUND CARE AND SKIN PROTECTION. DISCUSSED WITH NURSING STAFF AND SURGICAL Riky IZQUIERDO IN AGREEMENT WITH PLAN OF CARE.FIRST STEP LOW AIRSS MATTRESS IS ON ORDER. Addendum: 02/06/22 at 1257 by DENISSE GALLARDO RN Amended: Links added.
--- NOTE | 2022-02-06 13:22 | NUR ---
Wound seen my compensation specialist, Susu ROBLEDO. Abdominal wound packed and covered. Will endorse information to PM nurse.
[2022-02-06 15:10] VITALS: BP 118/50
[2022-02-06] MEDS: OLANZAPINE 2.5 MG TABLET GT SCH (17:23)
--- NOTE | 2022-02-06 18:35 | NUR ---
Patient tolerated care well throughout shift. Feeding started at 1000 at a rate of 55 cc/hr. Patient tolerating feeding well with minimal amounts of residual. No complaints of pain or distress during shift. DVT pumps placed on patient. Comfort measures provided. Bed left in lowest position with call light within reach. Will endorse information to PM nurse.
--- NOTE | 2022-02-06 19:35 | NUR ---
Patient in bed awake able to make some needs known, no sob no chest pain, sinus rhythm on tele. Patient on GT feeding tolerate well, no nausea no vomiting, no diaarhea noted, no complain of pain at this time, Patient abdominal dressing intact, clean, cont to monitor.
[2022-02-06 20:39] VITALS: BP 130/57
[2022-02-06] MEDS: LATANOPROST OPHT DROP 2.5 ML BOTTLE EACHEYE SCH (21:20)
[2022-02-07 00:13] VITALS: BP 113/64
[2022-02-07 04:43] VITALS: BP 104/58
--- NOTE | 2022-02-07 05:49 | NUR ---
Patient in bed asleep but arousable, no sob no chest pain, sinus rhythm 87. Patient hob elevated, on GT feeding tolerate well, no gastric residual noted, no complain of pain, kept clean and dry, cont to monitor.
[2022-02-07 06:59] LABS: HEMATOCRIT 21.6 % (31.2-41.9); MEAN CORPUSCULAR HEMOGLOBIN 33.2 uug (24.7-32.8); MEAN CORPUSCULAR VOLUME 98.4 fL (75.5-95.3); PLATELET COUNT (AUTO) 250 K/uL (179-408)
[2022-02-07 07:16] LABS: CREATININE 5.3 mg/dL (0.6-1.3); MAGNESIUM 2.2 mg/dL (1.8-2.4); PHOSPHOROUS 2.9 mg/dL (2.5-4.9)
--- NOTE | 2022-02-07 07:25 | NUR ---
Patient latest hgh 7.3, endorsed to Enoc ROBLEDO, patient has standing order for blood transfusion but the order incomplete, AM RN will follow up the order,
--- NOTE | 2022-02-07 08:00 | NUR ---
NOTIFIED CRITICAL LAB VALUE HGB 7.3, GLUCOSE POC 374, BUN 85. NO NEW ORDERS GIVEN
[2022-02-07] MEDS: PANTOPRAZOLE ORAL SUSPENSION 40 MG SUSPDR.PKT GT SCH (09:11)
[2022-02-07] MEDS: DOCUSATE SODIUM 100 MG/10 ML LIQUID UDC GT SCH ×2 (09:11→20:38)
[2022-02-07] MEDS: FOLIC ACID/VITAMIN B COMP W-C TABLET GT SCH (09:11)
--- NOTE | 2022-02-07 09:15 | NUR ---
PT HAVING DIALYSIS. HOLD MORNING MEDS WILL GIVE LATER.
[2022-02-07 11:00] VITALS: BP 96/48
--- NOTE | 2022-02-07 12:30 | NUR ---
DIALYSIS DONE. PT TOLERATED HD WELL. 2L DIALYSATE REMOVED.
--- NOTE | 2022-02-07 14:00 | NUR ---
GT SITE WOUND TREATMENT DONE.
[2022-02-07 16:00] VITALS: BP 116/55
[2022-02-07] MEDS: OLANZAPINE 2.5 MG TABLET GT SCH (18:45)
[2022-02-07 20:18] VITALS: BP 109/57
[2022-02-07] MEDS: LATANOPROST OPHT DROP 2.5 ML BOTTLE EACHEYE SCH (20:39)
[2022-02-07] MEDS: NEPRO 1000 ML GT PRN (22:23)
[2022-02-08] VITALS (13 sets, daily range): BP systolic 94–123; BP diastolic 45–65
[2022-02-08 06:52] LABS: HEMATOCRIT 22.2 % (31.2-41.9); MEAN CORPUSCULAR HEMOGLOBIN 32.7 uug (24.7-32.8); MEAN CORPUSCULAR VOLUME 96.9 fL (75.5-95.3); PLATELET COUNT (AUTO) 279 K/uL (179-408)
--- NOTE | 2022-02-08 06:55 | NUR ---
Slept intermittently, HOB kept elevated. GT intact and patent, no noted residual, GT site care provided.
[2022-02-08 07:36] LABS: CREATININE 3.5 mg/dL (0.6-1.3); MAGNESIUM 2.1 mg/dL (1.8-2.4); POTASSIUM 3.7 mmol/L (3.5-5.1)
[2022-02-08] MEDS: FOLIC ACID/VITAMIN B COMP W-C TABLET GT SCH (08:28)
[2022-02-08] MEDS: PANTOPRAZOLE ORAL SUSPENSION 40 MG SUSPDR.PKT GT SCH (08:28)
--- NOTE | 2022-02-08 08:30 | NUR ---
At 8:16am, received call from lab of glucose [address] Harris no new order received at this time.
[2022-02-08] MEDS ORDERED: DEXTROSE 50% 50 ML DISP.SYRIN IV PRN (09:00)
--- NOTE | 2022-02-08 09:00 | NUR ---
Dr. Harris on the floor with order to infuse 1 prbc as ordered yesterday. Patient with no ss of bleeding noted. No resp distress. SR on telemonitor.
[2022-02-08] MEDS: DOCUSATE SODIUM 100 MG/10 ML LIQUID UDC GT SCH ×2 (09:08→20:09)
[2022-02-08] MEDS: BLOOD SUGAR DIAGNOSTIC 1 EACH STRIP VI SCH ×4 (09:15→20:12)
[2022-02-08] MEDS: INSULIN REGULAR, HUMAN 300 UNIT/3 ML VIAL SQ PRN ×3 (09:16→17:18)
[2022-02-08] MEDS: ACETAMINOPHEN 650 MG/20.3 ML LIQUID UDC GT PRN ×2 (09:37→20:33)
--- NOTE | 2022-02-08 12:30 | NUR ---
Blood transfusing as ordered. No resp distress. No ss of adverse/allergic reactions.
--- NOTE | 2022-02-08 15:43 | NUR ---
Blood transfusion finished. No resp distress. No ss of adverse or allergic reaction.
[2022-02-08] MEDS: OLANZAPINE 2.5 MG TABLET GT SCH (17:18)
--- NOTE | 2022-02-08 17:54 | NUR ---
Awake and oriented. No ss of pain or respiratory distress. Safety measures in place. needs attended.
[2022-02-08] MEDS ORDERED: PANT40SU2 GT (19:09)
[2022-02-08] MEDS: LATANOPROST OPHT DROP 2.5 ML BOTTLE EACHEYE SCH (20:09)
--- NOTE | 2022-02-08 21:07 | NUR ---
Patient discharged to [facility], transported by [facility] via gurney. Patient awake alert and oriented x3, in stable condition, no acute distress. GT intact and patent. S/P blood transfusion with no adverse reaction noted. Report given to Keyon ROBLEDO.
== END 2022-02-08 21:46 | DRG 393 ==
LOC: ER 19:46 → TELE3 23:00 → MEDSURG3 02-08 10:30
PROVIDERS: ADMIT Nurse Practitioner Acute Care; ATTEND Internal Medicine
PROC: 05H533Z Insertion of Infusion Device into Right Subclavian Vein, Percutaneous Approach (ICD-10-PCS; 2022-02-06)
PROC: B546ZZA Ultrasonography of Right Subclavian Vein, Guidance (ICD-10-PCS; 2022-02-06)
PROC: 5A1D70Z Performance of Urinary Filtration, Intermittent, Less than 6 Hours Per Day (ICD-10-PCS; 2022-02-07)
PROC: 30233N1 Transfusion of Nonautologous Red Blood Cells into Peripheral Vein, Percutaneous Approach (ICD-10-PCS; principal; 2022-02-08)
DX: K64.9 Unspecified hemorrhoids (principal); E43 Unspecified severe protein-calorie malnutrition; N18.6 End stage renal disease; D68.59 Other primary thrombophilia; Z68.1 Body mass index [BMI] 19.9 or less, adult; D62 Acute posthemorrhagic anemia; E11.22 Type 2 diabetes mellitus with diabetic chronic kidney disease; D63.8 Anemia in other chronic diseases classified elsewhere; E78.5 Hyperlipidemia, unspecified; F01.50 Vascular dementia, unspecified severity, without behavioral disturbance, psychotic disturbance, mood disturbance, and anxiety; K43.9 Ventral hernia without obstruction or gangrene; Z99.2 Dependence on renal dialysis; Z20.822 Contact with and (suspected) exposure to COVID-19; E87.6 Hypokalemia; R13.10 Dysphagia, unspecified; Z93.1 Gastrostomy status; H40.9 Unspecified glaucoma; K21.9 Gastro-esophageal reflux disease without esophagitis; Z86.73 Personal history of transient ischemic attack (TIA), and cerebral infarction without residual deficits; G40.909 Epilepsy, unspecified, not intractable, without status epilepticus; Z74.09 Other reduced mobility; F20.9 Schizophrenia, unspecified; Z79.4 Long term (current) use of insulin
CPT/HCPCS: 36415; 36556; 71045; 83550; 83605; 83735; 84100; 84443; 84484; 85025; 85730; 86850; 86900; 86901; 86920; 93005; A4663; A6209; A6213; G0378; J1815; P9016

== ENCOUNTER 2023-02-07 13:35 | Inpatient (IN) | payer MEDICARE, OTHER ==
[~2023-02-07] VITALS: Ht 167.6 cm; Wt 71.2 kg
[~2023-02-07 13:35] MED LIST changes: -ASPI81TA31 GT; -DOCU100C36 GT; -FENO48TA6 GT; -FOLI0.8T2 PO; -METR500T GT; -OMEP40CA21 GT; +PANT40SU2 GT
[2023-02-07] MEDS ORDERED: PANTOPRAZOLE SODIUM IV 80 MG in IV DEXTROSE 5% 500 ML IV ONE (14:00)
[2023-02-07] MEDS ORDERED: PANTOPRAZOLE SODIUM 40 MG VIAL IV ONE (14:00)
[2023-02-07 15:12] LABS: BASOPHILS # (AUTO) 0.1 K/UL (0.0-0.2); BASOPHILS % (AUTO) 1.1 % (0.0-2.0); EOSINOPHILS # (AUTO) 0.4 K/uL (0.0-0.7); EOSINOPHILS % (AUTO) 5.6 % (0.0-7.0); HEMATOCRIT 21.1 % (31.2-41.9); LYMPHOCYTES # (AUTO) 1.1 K/uL (0.8-4.8); LYMPHOCYTES % (AUTO) 15.7 % (20.5-51.5); MEAN CORPUSCULAR HEMOGLOBIN 33.6 uug (24.7-32.8); MEAN CORPUSCULAR HGB CONC 33 g/dL (32.3-35.6); MONOCYTES # (AUTO) 0.7 K/uL (0.1-1.30); NEUTROPHILS # (AUTO) 4.5 K/uL (1.8-8.9); NEUTROPHILS % (AUTO) 66.6 % (38.5-71.5); PLATELET COUNT (AUTO) 252 K/uL (179-408); RED CELL DISTRIBUTION WIDTH 19.2 % (12.3-17.7); WHITE BLOOD COUNT (AUTO) 6.8 K/uL (3.8-11.8)
[2023-02-07 15:13] LABS: DIFFERENTIAL COMMENT 1; RED BLOOD CELL COUNT(AUTO) 2.09 MIL/uL (3.63-4.92)
[2023-02-07 15:26] LABS: CALCIUM 9.9 mg/dL (8.5-10.1); CARBON DIOXIDE 28 mmol/L (21-32); CHLORIDE 97 mmol/L (98-107); CREATININE 5.1 mg/dL (0.6-1.3); GLUCOSE 189 mg/dL (74-106); POTASSIUM 3.3 mmol/L (3.5-5.1); SODIUM SERUM 136 mmol/L (136-145); UREA NITROGEN, BLOOD 63 mg/dL (7-18)
[2023-02-07 15:40] LABS: ALANINE AMINOTRANSFERASE 9 U/L (14-59); ALBUMIN 2.8 g/dL (3.4-5.0); ALKALINE PHOSPHATASE 205 U/L (50-136); ASPARTATE AMINOTRANSFERASE 15 U/L (15-37); BILIRUBIN,DIRECT 0.1 mg/dL (0.0-0.2); BILIRUBIN,TOTAL 0.4 mg/dL (0.2-1.0); LIPASE 154 U/L (73-393); TOTAL PROTEIN, SERUM 7.8 g/dL (6.4-8.2)
[2023-02-07 16:25] LABS: *OCCULT BLOOD STOOL POSITIVE (NEGATIVE)
[2023-02-07] MEDS ORDERED: HOME MED MISCELLANEOUS XX SCH (16:45)
[2023-02-07] MEDS ORDERED: MIDODRINE HCL 5 MG TABLET GT PRN (16:45)
[2023-02-07] MEDS ORDERED: MAGNESIUM HYDROXIDE 30 ML LIQUID UDC PO PRN (16:45)
[2023-02-07] MEDS ORDERED: HYDROCODONE/APAP 5-325MG TABLET GT PRN (16:45)
[2023-02-07] MEDS ORDERED: ONDANSETRON 4 MG/2 ML VIAL IV PRN (16:45)
[2023-02-07] MEDS ORDERED: REMEDY ESSENTIAL ZINC PASTE 113 GM TP PRN (16:45)
[2023-02-07] MEDS ORDERED: ACETAMINOPHEN 325 MG TABLET PO PRN (16:45)
[2023-02-07] MEDS ORDERED: DEXTROSE 50% 50 ML DISP.SYRIN IV PRN (17:00)
[2023-02-07] MEDS ORDERED: LATANOPROST OPHT DROP 2.5 ML BOTTLE EACHEYE SCH (18:00)
[2023-02-07] MEDS ORDERED: OLANZAPINE 5 MG TABLET GT SCH (18:00)
[2023-02-07] MEDS: BLOOD SUGAR DIAGNOSTIC 1 EACH STRIP VI SCH (18:49)
[2023-02-07] MEDS: INSULIN REGULAR, HUMAN 300 UNIT/3 ML VIAL SQ PRN (18:58)
[2023-02-07] MEDS ORDERED: INSULIN GLARGINE,HUM 300 UNITS/3 ML CARTRIDGE SQ SCH (21:00)
[2023-02-07] MEDS: PANTOPRAZOLE SODIUM 40 MG VIAL IV SCH (21:00)
[2023-02-07 21:30] VITALS: O2SAT 98
[2023-02-08] VITALS (11 sets, daily range): BP systolic 108–138; BP diastolic 51–73; TEMP 97.9–99.3; O2SAT 96–98
[2023-02-08] MEDS: BLOOD SUGAR DIAGNOSTIC 1 EACH STRIP VI SCH ×5 (00:01→23:49)
[2023-02-08] MEDS: INSULIN REGULAR, HUMAN 300 UNIT/3 ML VIAL SQ PRN ×5 (00:33→23:56)
[2023-02-08 04:51] LABS: BASOPHILS % (AUTO) 0.7 % (0.0-2.0); EOSINOPHILS # (AUTO) 0.4 K/uL (0.0-0.7); LYMPHOCYTES % (AUTO) 15.9 % (20.5-51.5); MEAN CORPUSCULAR HEMOGLOBIN 33.9 uug (24.7-32.8); MEAN CORPUSCULAR HGB CONC 34 g/dL (32.3-35.6); MEAN CORPUSCULAR VOLUME 100.4 fL (75.5-95.3); MONOCYTES # (AUTO) 0.6 K/uL (0.1-1.30); MONOCYTES % (AUTO) 9.8 % (0.0-11.0); NEUTROPHILS % (AUTO) 66.6 % (38.5-71.5); PLATELET COUNT (AUTO) 237 K/uL (179-408); RED CELL DISTRIBUTION WIDTH 19.8 % (12.3-17.7); WHITE BLOOD COUNT (AUTO) 6.1 K/uL (3.8-11.8)
[2023-02-08 05:08] LABS: CALCIUM 9.4 mg/dL (8.5-10.1); PHOSPHOROUS 4.1 mg/dL (2.5-4.9); POTASSIUM 3.2 mmol/L (3.5-5.1)
[2023-02-08 05:09] LABS: DIFFERENTIAL COMMENT 1; HEMATOCRIT 17.1 % (31.2-41.9); HEMOGLOBIN 5.8 g/dL (10.9-14.3)
[2023-02-08] MEDS ORDERED: IV NORMAL SALINE 250 ML IV PRN ×2 (05:20→18:45)
[2023-02-08] MEDS: PANTOPRAZOLE SODIUM 40 MG VIAL IV SCH ×2 (08:42→21:01)
[2023-02-08] MEDS: FOLIC ACID/VITAMIN B COMP W-C TABLET GT SCH (08:42)
[2023-02-08] MEDS ORDERED: NUT.237L85 GT (09:55)
[2023-02-08] MEDS ORDERED: HONE15GE TP (10:02)
[2023-02-08] MEDS ORDERED: PETR113O TP (10:02)
[2023-02-08] MEDS ORDERED: ACET325T53 GT (10:49)
[2023-02-08] MEDS ORDERED: [UNRECOGNIZED DRUG - CODE] GT (10:49)
[2023-02-08] MEDS ORDERED: CADE40GE2 TP (10:51)
[2023-02-08] MEDS ORDERED: OMEP40CA21 GT (10:51)
[2023-02-08] MEDS ORDERED: PROT30LI GT (10:55)
[2023-02-08 12:48] LABS: HEMATOCRIT 19.7 % (31.2-41.9)
[2023-02-08 12:56] LABS: HEMOGLOBIN 6.7 g/dL (10.9-14.3)
[2023-02-08] MEDS ORDERED: POTASSIUM CHLORIDE 20 MEQ TAB.PRT.SR PO ONE (13:00)
[2023-02-08] MEDS: NEPRO 1000 ML GT PRN (13:14)
[2023-02-08] MEDS ORDERED: POTASSIUM CHLORIDE 20 MEQ POWDER PACKET GT ONE (13:30)
[2023-02-08] MEDS ORDERED: MEDIHONEY= THERAHONEY 1.5 OZ TUBE TOP SCH (14:15)
[2023-02-08] MEDS ORDERED: ALBUMIN HUMAN 25% 100 ML IV PRN (16:00)
[2023-02-08] MEDS: MIDODRINE HCL 5 MG TABLET GT SCH (17:26)
[2023-02-08] MEDS ORDERED: OLANZAPINE 5 MG TABLET GT SCH (18:00)
[2023-02-08 19:02] LABS: HEMATOCRIT 20.3 % (31.2-41.9); HEMOGLOBIN 6.9 g/dL (10.9-14.3)
[2023-02-08] MEDS ORDERED: VANCOMYCIN IV 1,000 MG in IV DEXTROSE 5% 250 ML IV ONE (20:00)
[2023-02-08] MEDS ORDERED: LATANOPROST OPHT DROP 2.5 ML BOTTLE EACHEYE SCH (21:00)
[2023-02-08] MEDS: INSULIN GLARGINE,HUM 300 UNITS/3 ML CARTRIDGE SQ SCH (21:12)
[2023-02-09] VITALS (10 sets, daily range): BP systolic 109–129; BP diastolic 52–77; TEMP 97.4–98.7; O2SAT 98–100
[2023-02-09 04:54] LABS: BASOPHILS % (AUTO) 0.8 % (0.0-2.0); EOSINOPHILS # (AUTO) 0.3 K/uL (0.0-0.7); EOSINOPHILS % (AUTO) 6.4 % (0.0-7.0); HEMATOCRIT 22.1 % (31.2-41.9); HEMOGLOBIN 7.7 g/dL (10.9-14.3); LYMPHOCYTES # (AUTO) 0.9 K/uL (0.8-4.8); LYMPHOCYTES % (AUTO) 17.7 % (20.5-51.5); MEAN CORPUSCULAR HEMOGLOBIN 33.2 uug (24.7-32.8); MEAN CORPUSCULAR HGB CONC 35 g/dL (32.3-35.6); MEAN CORPUSCULAR VOLUME 95.2 fL (75.5-95.3); MONOCYTES # (AUTO) 0.5 K/uL (0.1-1.30); MONOCYTES % (AUTO) 10.1 % (0.0-11.0); NEUTROPHILS # (AUTO) 3.3 K/uL (1.8-8.9); PLATELET COUNT (AUTO) 206 K/uL (179-408); RED CELL DISTRIBUTION WIDTH 17.3 % (12.3-17.7); WHITE BLOOD COUNT (AUTO) 5.1 K/uL (3.8-11.8)
[2023-02-09 05:07] LABS: CALCIUM 8.6 mg/dL (8.5-10.1); CREATININE 4.3 mg/dL (0.6-1.3); POTASSIUM 3.8 mmol/L (3.5-5.1)
[2023-02-09 05:12] LABS: RED BLOOD CELL COUNT(AUTO) 2.33 MIL/uL (3.63-4.92)
[2023-02-09 05:13] LABS: DIFFERENTIAL COMMENT 1
[2023-02-09] MEDS: BLOOD SUGAR DIAGNOSTIC 1 EACH STRIP VI SCH ×3 (05:41→17:13)
[2023-02-09] MEDS: INSULIN REGULAR, HUMAN 300 UNIT/3 ML VIAL SQ PRN ×3 (05:45→17:14)
[2023-02-09] MEDS: PANTOPRAZOLE SODIUM 40 MG VIAL IV SCH ×2 (08:20→21:21)
[2023-02-09] MEDS: FOLIC ACID/VITAMIN B COMP W-C TABLET GT SCH (08:23)
[2023-02-09] MEDS: MIDODRINE HCL 5 MG TABLET GT SCH ×2 (08:23→16:59)
[2023-02-09] MEDS ORDERED: EPOETIN ALFA 10,000 UNITS/ML VIAL SQ SCH (09:00)
[2023-02-09] MEDS ORDERED: MEDIHONEY= THERAHONEY 1.5 OZ TUBE TOP SCH (09:00)
[2023-02-09] MEDS: NEPRO 1000 ML GT PRN (17:00)
[2023-02-09] MEDS: INSULIN GLARGINE,HUM 300 UNITS/3 ML CARTRIDGE SQ SCH (21:26)
[2023-02-09] MEDS ORDERED: INSULIN GLARGINE,HUM 300 UNITS/3 ML CARTRIDGE SQ ONE (22:01)
[2023-02-10] VITALS: BP 118/59; TEMP 98; O2SAT 100
[2023-02-10] MEDS: BLOOD SUGAR DIAGNOSTIC 1 EACH STRIP VI SCH
[2023-02-10] MEDS: INSULIN REGULAR, HUMAN 300 UNIT/3 ML VIAL SQ PRN (01:05)
[2023-02-10] MEDS ORDERED: EPINEPHRINE 1:10,000 1 MG/10 ML DISP.SYRIN ONE ×6 (02:50→12:00)
[2023-02-10] MEDS ORDERED: SODIUM BICARBONATE 8.4% 50 MEQ/50 ML DISP.SYRIN IV ONE ×2 (02:59→12:00)
[2023-02-10] MEDS ORDERED: VANCOMYCIN IV 500 MG in IV DEXTROSE 5% 100 ML IV PRN (08:00)
[2023-02-10] MEDS ORDERED: AMIODARONE HCL 150 MG/3 ML VIAL IV ONE (12:00)
[2023-02-10] MEDS ORDERED: CALCIUM CHLORIDE 1 GM/10 ML DISP.SYRIN IVP ONE (12:00)
[2023-02-10] MEDS ORDERED: INSULIN GLARGINE,HUM 300 UNITS/3 ML CARTRIDGE SQ SCH (21:00)
[2023-02-12] MEDS ORDERED: EPOETIN ALFA 10,000 UNITS/ML VIAL SQ SCH (09:00)
== END 2023-02-10 03:15 | DRG 871 ==
LOC: ER 13:36 → CCU 22:48
PROVIDERS: ADMIT Nurse Practitioner Acute Care; ATTEND Internal Medicine
PROC: 30243N1 Transfusion of Nonautologous Red Blood Cells into Central Vein, Percutaneous Approach (ICD-10-PCS; principal; 2023-02-08)
PROC: 5A1D70Z Performance of Urinary Filtration, Intermittent, Less than 6 Hours Per Day (ICD-10-PCS; 2023-02-08)
PROC: 5A12012 Performance of Cardiac Output, Single, Manual (ICD-10-PCS; 2023-02-10)
PROC: 5A2204Z Restoration of Cardiac Rhythm, Single (ICD-10-PCS; 2023-02-10)
DX: A41.02 Sepsis due to Methicillin resistant Staphylococcus aureus (principal); E43 Unspecified severe protein-calorie malnutrition; G93.41 Metabolic encephalopathy; L89.154 Pressure ulcer of sacral region, stage 4; N18.6 End stage renal disease; I21.4 Non-ST elevation (NSTEMI) myocardial infarction; K92.2 Gastrointestinal hemorrhage, unspecified; D62 Acute posthemorrhagic anemia; I12.0 Hypertensive chronic kidney disease with stage 5 chronic kidney disease or end stage renal disease; E87.1 Hypo-osmolality and hyponatremia; D68.69 Other thrombophilia; E11.22 Type 2 diabetes mellitus with diabetic chronic kidney disease; E78.5 Hyperlipidemia, unspecified; E87.6 Hypokalemia; F20.9 Schizophrenia, unspecified; G40.909 Epilepsy, unspecified, not intractable, without status epilepticus; K21.9 Gastro-esophageal reflux disease without esophagitis; M89.8X9 Other specified disorders of bone, unspecified site; R13.10 Dysphagia, unspecified; Z74.01 Bed confinement status; Z79.4 Long term (current) use of insulin; Z86.73 Personal history of transient ischemic attack (TIA), and cerebral infarction without residual deficits; Z87.11 Personal history of peptic ulcer disease; Z93.1 Gastrostomy status; Z99.2 Dependence on renal dialysis; Z74.09 Other reduced mobility; H40.9 Unspecified glaucoma; F29 Unspecified psychosis not due to a substance or known physiological condition; E11.65 Type 2 diabetes mellitus with hyperglycemia
CPT/HCPCS: 36415; 83605; 83690; 83735; 84100; 84484; 85018; 85025; 85730; 86850; 86900; 86901; 86920; 87040; 87077; 90937; 93005; C9113; G0378; J0171; J0282; J0885; J1815; J3370; J3490; J7040; J7050; J7060; P9016